=== PATIENT | male | born 1945 | race Caucasian/White ===

== ENCOUNTER 2018-06-26 17:44 | Emergency (ER) | payer OTHER ==
[~2018-06-26] VITALS: Ht 180.3 cm; Wt 88.5 kg
[2018-06-26 18:32] LABS: BASOPHILS ABSOLUTE AUTO 0.03 K/mm3 (0.00-0.23); BASOPHILS PERCENT AUTO 1 % (0-2); EOSINOPHILS PERCENT AUTO 2 % (0-6); Hematocrit 43.9 % (37.0-53.0); Hemoglobin 15.1 g/dL (13.5-17.5); IMMATURE GRAN ABSOLUTE AUTO 0.01 K/mm3 (0.00-0.10); IMMATURE GRAN PERCENT AUTO 0 % (0-1); LYMPHOCYTES ABSOLUTE AUTO 1.78 K/mm3 (0.84-5.20); LYMPHOCYTES PERCENT AUTO 30 % (21-46); MONOCYTES PERCENT AUTO 7 % (4-13); Mean Corpuscular HGB 34.6 pg (26.0-34.0); Mean Corpuscular HGB Conc 34.4 g/dL (31.5-36.5); Mean Corpuscular Volume 101 fL (80-100); Mean Platelet Volume 10.4 fL (9.1-12.4); NEUTROPHILS ABSOLUTE AUTO 3.58 K/mm3 (1.96-9.15); NEUTROPHILS PERCENT AUTO 61 % (41-73); Platelet Count 188 K/mm3 (150-400); RDW Coefficient Variation 11.8 % (11.7-14.2); RDW Standard Deviation 43.6 fL (35.1-46.3); Red Blood Cell Count 4.37 M/mm3 (4.30-5.90)
[2018-06-26] MEDS ORDERED: LISI20 PO (18:46)
[2018-06-26 18:56] LABS: Alanine Aminotransfer (ALT/SGP 31 U/L (12-78); Albumin, Blood 4.3 g/dL (3.4-5.0); Albumin/Globulin Ratio 1.3 (0.8-1.8); Alk Phos 107 U/L (50-136); Anion Gap 9 mmol/L (6-16); Aspartate Aminotrans (AST/SGOT 22 U/L (12-37); Bilirubin, Total 0.5 mg/dL (0.1-1.0); Blood Urea Nitrogen 9 mg/dL (8-24); Bun/Creatinine Ratio 8.9 (12.0-20.0); CO2, Blood 24 mmol/L (21-32); Calcium, Blood 8.8 mg/dL (8.5-10.1); Chloride, Blood 107 mmol/L (98-108); Creatinine, Blood 1.01 mg/dL (0.60-1.20); Globulin, Blood 3.2 g/dL (2.2-4.0); Glomerular Filtration Rate >60 (60-); Glucose, Blood 150 mg/dL (70-99); Potassium, Blood 3.8 mmol/L (3.5-5.5); Sodium, Blood 140 mmol/L (136-145); Total Protein, Blood 7.5 g/dL (6.4-8.2); Troponin I <0.015 ng/mL (0.000-0.040)
[2018-06-26] MEDS ORDERED: ELIQUIS5 MG PO (20:25)
[2018-06-26] MEDS ORDERED: Toprol Xl50 MG PO (20:25)
== END 2018-06-26 20:48 | disposition home or self-care (01) ==
LOC: ER 17:44
PROVIDERS: Emergency Medicine
DX: I48.0 Paroxysmal atrial fibrillation (principal); Z79.899 Other long term (current) drug therapy
CPT/HCPCS: 36415; 71046; 80053; 84484; 85025; 93005; 93010; 96361; 96374; 99285-25; J7030

== ENCOUNTER → 2019-04-01 | Outpatient (CLI) | payer OTHER ==
[~2019-04-01] MED LIST: ELIQUIS5 MG PO; LISI20 PO; Toprol Xl50 MG PO
== END | disposition home or self-care (01) ==
LOC: LAB SHORT 17:30 → LAB 17:30
DX: L08.9 Local infection of the skin and subcutaneous tissue, unspecified (principal)
CPT/HCPCS: 87070; 87077; 87147; 87186; 87205

== ENCOUNTER → 2020-01-30 | Outpatient (CLI) | payer OTHER | END | disposition home or self-care (01) | LOC: LAB 15:14 → LAB SHORT 15:14 | DX: N39.0 Urinary tract infection, site not specified (principal) | CPT/HCPCS: 87086 ==

== ENCOUNTER 2020-06-01 12:05 | Day surgery (SDC) | payer OTHER ==
[~2020-06-01] VITALS: Ht 180.3 cm; Wt 93.0 kg
[~2020-06-01 12:05] MED LIST changes: +AMLO5 PO; +ERGO50000 PO; +MAGNESIUM OXID500 MG PO; +METO25ER PO; +ZESTRIL40 M1 PO
--- NOTE | 2020-06-01 12:42 | NUR ---
06/01/20 1242 Zeny Hu 1ST IV ATTEMPT IN RW INFILTRATED, STARTED BY GEORGINA THORPE 2ND IV ATTEMPT IN RAC SUCCESSFUL, STARTED BY GEORGINA THORPE
== END 2020-06-01 13:53 | disposition home or self-care (01) ==
LOC: ORSCSDS 12:05
PROVIDERS: Internal Medicine Gastroenterology
PROC: 0DBH8ZX Excision of Cecum, Via Natural or Artificial Opening Endoscopic, Diagnostic (ICD-10-PCS; principal; 2020-06-01 13:15)
PROC: 0DBK8ZX Excision of Ascending Colon, Via Natural or Artificial Opening Endoscopic, Diagnostic (ICD-10-PCS; principal; 2020-06-01 13:15)
DX: Z12.11 Encounter for screening for malignant neoplasm of colon (principal); D12.0 Benign neoplasm of cecum; D12.2 Benign neoplasm of ascending colon; K57.30 Diverticulosis of large intestine without perforation or abscess without bleeding; K21.9 Gastro-esophageal reflux disease without esophagitis; E55.9 Vitamin D deficiency, unspecified; I48.91 Unspecified atrial fibrillation; I10 Essential (primary) hypertension; Z79.899 Other long term (current) drug therapy
CPT/HCPCS: 88305; J2704; J7120

== ENCOUNTER 2021-11-09 09:22 | Day surgery (SDC) | payer OTHER ==
[~2021-11-09] VITALS: Ht 180.3 cm; Wt 82.0 kg
[~2021-11-09 09:22] MED LIST changes: +AMLO10 PO; +ASPI81CH PO
--- NOTE | 2021-11-09 12:40 | NUR ---
1115 PATIENT RETURNED FROM THE [facility] VIA RECLINER. PLACED ON THE MONITOR. FULLY AWAKE. TR BAND TO THE RIGHT RADIAL WITH WHITE BOARD IN PLACE. 10 ML OF AIR IN THE BAND. NO PAIN NOTED. JONELLE GARRIDO FOLLOWED PATIENT FROM THE PROCEDURE TO THE RECOVERY.
--- NOTE | 2021-11-09 12:42 | NUR ---
1145 LUNCH SERVED AND PATIENT FED SELF. PATIENT UP TO THE RESTRROM AFTER LUNCH, GAIT STEADY. NO CHANGE IN TR BAND STATUS.
--- NOTE | 2021-11-09 12:43 | NUR ---
1230 REVIEWED DISCHARGE INSTRUCTIONS WITH THE JANENET AT THE BEDSIDE. 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
--- NOTE | 2021-11-09 13:06 | NUR ---
1255 BEGAN RELEASING AIR FROM THE TR BAND AND AFTER 4 ML REMOVED, BLEEDING MOTED. AIR REPLACED AND TR BAND READJUSTED AND BLEEDIN CONTROLED. SMALL HEMATOMA NOTED BUT QUICKLY HELD PRESSURE AND HEMATOMA CONTROLLED AND RESOLVED.
--- NOTE | 2021-11-09 13:36 | NUR ---
1330 ARTERIAL SITE IS NOT BLEEDING. TR BAND REMOVED. AND SITE ASSESSED. BUT HEMATOMA KEEPS RESURFACING DISTAL TO THE RADIAL SITE ABOUT 1/2 AN INCH. TR BAND REPOSITIONED DOWN THE WRIST. PATIENT UP OFF THE MONITOR AND ALLOWED TO DRESS AND UP THE RESTROOM. NO BLEEDING NOTED WITH ACTIVITY. NO HEMATOMA NOTED.
--- NOTE | 2021-11-09 14:31 | NUR ---
1430 PATIENT GATHERED ALL BELONINGS AND DISCHARGE INSTRUCTIONS. PIV REMOVED AND CATH TIP INTACT. PRESSURE DRESSING APPLIED TO LEFT AC SITE. TR BAND REMOVED AND PRESSURE DRESSIN APPLIED DIRESTED BY . WHITE BOARD APPLIED TO THE RIGHT WRIST. PATIENT DISCHARGED HOME VIA WHEELCHAIR WITH DRIVING. FOLLOW UP APPOINTMENT ON November. NO FURTHER QUESTIONS FROM THE PATIENT.
== END 2021-11-09 13:30 | disposition home or self-care (01) ==
LOC: MHTC 09:22
DX: I48.0 Paroxysmal atrial fibrillation (principal); R07.9 Chest pain, unspecified; I25.10 Atherosclerotic heart disease of native coronary artery without angina pectoris; I10 Essential (primary) hypertension
CPT/HCPCS: 93454; 99152; C1769; C1887; C1894; J1644; J2250; J3010; J7030; J7050; Q9967

== ENCOUNTER 2025-03-27 16:43 | Observation (INO) | payer OTHER ==
[~2025-03-27] VITALS: Ht 182.9 cm; Wt 89.0 kg
[2025-03-27] VITALS (8 sets, daily range): BP systolic 110–147; BP diastolic 77–101
[2025-03-27 17:55] LABS: BASOPHILS ABSOLUTE AUTO 0.03 K/mm3 (0.00-0.23); BASOPHILS PERCENT AUTO 0 % (0-2); EOSINOPHILS ABSOLUTE AUTO 0.02 K/mm3 (0.00-0.68); EOSINOPHILS PERCENT AUTO 0 % (0-6); Hematocrit 38.1 % (37.0-53.0); Hemoglobin 13.3 g/dL (13.5-17.5); IMMATURE GRAN ABSOLUTE AUTO 0.07 K/mm3 (0.00-0.10); IMMATURE GRAN PERCENT AUTO 1 % (0-1); LYMPHOCYTES ABSOLUTE AUTO 0.69 K/mm3 (0.84-5.20); LYMPHOCYTES PERCENT AUTO 5 % (21-46); MONOCYTES ABSOLUTE AUTO 0.68 K/mm3 (0.16-1.47); MONOCYTES PERCENT AUTO 5 % (4-13); Mean Corpuscular HGB Conc 34.9 g/dL (31.5-36.5); Mean Corpuscular Volume 98 fL (80-100); NEUTROPHILS ABSOLUTE AUTO 12.40 K/mm3 (1.96-9.15); NEUTROPHILS PERCENT AUTO 89 % (41-73); NRBC ABSOLUTE 0.00 K/mm3 (0.00-0.02); NRBC Auto 0.0 /100 WBC (0.0-0.2); Platelet Count 165 K/mm3 (150-400); RDW Coefficient Variation 12.4 % (11.7-14.2); RDW Standard Deviation 44.8 fL (35.1-46.3)
[2025-03-27 18:01] LABS: Anion Gap 10.0 mmol/L (3-11); Blood Urea Nitrogen 14.0 mg/dL (8-24); CO2, Blood 21.0 mmol/L (21-32); Calcium, Blood 8.3 mg/dL (8.5-10.1); Chloride, Blood 106.0 mmol/L (98-108); Creatinine, Blood 0.83 mg/dL (0.60-1.20); Glucose, Blood 161.0 mg/dL (70-99); Potassium, Blood 3.7 mmol/L (3.5-5.5); Sodium, Blood 133.0 mmol/L (136-145)
[2025-03-27 18:20] LABS: Prothrombin Time Results 11.9 Sec (9.7-11.5)
[2025-03-27 19:55] LABS: Source, Urine Clean Catch
[2025-03-27 19:58] LABS: Bilirubin, Urine Neg (Neg); Glucose Qualitative, Urine Neg (Neg); Ketones, Urine 4+ (Neg); Leukocyte Esterase, Urine Neg (Neg); Protein, Urine 2+ (Neg); Specific Gravity, Urine 1.020 (1.003-1.022); Urobilinogen, Urine NORM (Normal)
[2025-03-27 20:00] LABS: Color, Urine Yellow (P-Yellow)
[2025-03-27 20:05] LABS: Red Blood Cells, Urine 0-2 /hpf (0-2); White Blood Cells, Urine Not Seen /hpf (0-5)
[2025-03-27] MEDS ORDERED: Human Prothrombin Complx(Pcc) 2,000 UNIT in Water For Injection,Sterile 80 ML IV ONE (20:05)
[2025-03-27] MEDS ORDERED: Ondansetron HCl 2 MG / ML 2ML Vial IV PRN (20:05)
[2025-03-27] MEDS ORDERED: HydrALAZINE HCl 20 MG / ML 1ML Vial IV PRN (20:10)
[2025-03-27] MEDS ORDERED: Labetalol HCL 5 MG/ML 4ML Injection (Single Dose) IV PRN (20:10)
[2025-03-27] MEDS ORDERED: OxyCODONE 5 mg/Acetamin 325 mg TABLET PO PRN (20:10)
[2025-03-27] MEDS ORDERED: FentaNYL Citrate 50 MCG/ML 2 ML Injection IV PRN (20:10)
[2025-03-27 21:07] LABS: Hematocrit 34.8 % (37.0-53.0); Hemoglobin 12.1 g/dL (13.5-17.5)
[2025-03-27] MEDS ORDERED: VALSARTAN160 MG PO (21:26)
--- NOTE | 2025-03-27 22:00 | NUR ---
ADMISSION NOTE: PT ARRIVED FROM ED VIA GURNEY IN NO APPARENT DISTRESS. ALERT AND ORIENTED TO ALL. MAEW. LEFT LEG WRAPPED IN TIGHT SAVANNAH BANDAGE. CT SHOWED MASSIVE HEMATOMA WITH POSSIBLE CONTINUED BLEEDING FROM TERTIARY SOURCE. LAST HEMOGLOBIN 12.1. WILL TREND THESE VALUES Q 3 HRS. PULSES, TEMP, SENSATION IN LEFT LEG INTACT AND SYMMETRIC WITH RIGHT. LEG LEG IS SWOLLEN AND MEASUREMENTS TAKEN, 62CM AROUND AT MID THIGH AND 64CM AROUND AT UPPER THIGH. THESE MEASUREMENTS MARKED ON PT. PAIN SCORE 2-10 DESCRIBED A SURFACE PAIN/TIGHTNESS. PT HAS H/O A FIB WITH ABLATION SEVERAL YEARS AGO. IN SINUS RHYTHM IN THE LOW 70'S WITH STABLE BP. RA PRODUCING 97% SAT. PT USES CPAP AT HOME BUT RT SAYS THE MACHINE HE BROUGHT IS TOO DIRTY TO USE. PT SAYS HE WILL BE FINE WITHOUT IT FOR ONE NIGHT. IF NEEDED, WILL CALL RT AND HAVE A HOSPITAL CPAP BROUGHT IN. PT DENIES CHEST PAIN/PRESSURE, SOB, AB PAIN, N/V. ICE APPLIED TO LEG AND PT TILTED AWAY FROM LEFT SIDE FOR SLIGHT ELEVATION. WILL REVIEW AND CONTINUE PLAN OF CARE.
--- NOTE | 2025-03-27 22:17 | NUR ---
EVALUATED PATIENTS CPAP MACHINE. MACHINE WAS EXTREMELY DIRTY. TALKED WITH PATIENT ABOUT INPORTANCE OF KEEPING ALL PARTS CLEAN AND REPLACED. HE DECIDED HE COULD GO THE NIGHT WITHOUT HIS CPAP, IF HE DECIDES TO USE OURS LATER HE WILL LET THE NURSE KNOW. RN AWARE.
[2025-03-27 23:37] LABS: Hematocrit 33.5 % (37.0-53.0); Hemoglobin 11.8 g/dL (13.5-17.5)
[2025-03-28] VITALS (25 sets, daily range): BP systolic 101–188; BP diastolic 65–139
[2025-03-28 02:59] LABS: Hematocrit 32.0 % (37.0-53.0); Hemoglobin 11.1 g/dL (13.5-17.5)
[2025-03-28 07:16] LABS: Hematocrit 32.0 % (37.0-53.0); Hemoglobin 11.3 g/dL (13.5-17.5)
--- NOTE | 2025-03-28 07:30 | NUR ---
SHIFT SUMMARY PT LYING IN BED IN NO APPARENT DISTRESS. ALERT AND ORIENTED. VSS. AFEBRILE. BP SLIGHTLY ELEVATED. PAIN IS 1/10 AND MORE WITH MOVEMENT. LEFT LEG IS SWOLLEN BUT STABLE SINCE ADMISSION. PULSES, TEMP, SENSATION AND MOVEMENT IN BOTH FEET INTACT AND EQUAL. HR 60'S. SAT 97% ON RA. NO BM. 400 URINE OUTPUT DURING SHIFT. NO CHEST PAIN/PRESSURE, SOB, AB PAIN. SOME MILD NAUSEA ASSOCIATED WITH GERD TREATED WITH SUCCESS WITH TUMS. BEDSIDE SHIFT REPORT GIVEN TO ONCOMING DAY RN.
[2025-03-28 07:33] LABS: Anion Gap 11.0 mmol/L (3-11); Blood Urea Nitrogen 13.0 mg/dL (8-24); CO2, Blood 24.0 mmol/L (21-32); Calcium, Blood 8.2 mg/dL (8.5-10.1); Chloride, Blood 104.0 mmol/L (98-108); Creatinine, Blood 0.7 mg/dL (0.60-1.20); Glucose, Blood 137.0 mg/dL (70-99); Potassium, Blood 4.0 mmol/L (3.5-5.5); Sodium, Blood 135.0 mmol/L (136-145)
[2025-03-28 10:31] LABS: Hematocrit 32.9 % (37.0-53.0); Hemoglobin 11.5 g/dL (13.5-17.5)
--- NOTE | 2025-03-28 12:01 | NUR ---
ASSUMED CARE AT 0700 PT AWAKE AND WATCHING TV AT SHIFT CHANGE. HE IS A/O X4 AND ABLE TO MAKE HIS NEEDS KNOWN. LLE MODERATLY PAINFUL WITH MOVEMENT BUT PT MANAGING PAIN APPROPRIATLY; DISCOLORATION NOTED TO LLE WHERE HEMATOMA IS LOCATED; FIRM TO TOUCH BUT PT STATES "SOFTER THAN BEFORE". SPO2 >98% ON RA. AFEBRILE. AFIB NOTED WITH RATE 60'S. SBP 150'S. TOLERATING PO INTAKE WELL. USING URINAL INDEPENDENTLY. SEE SHIFT ASSESSMENT FOR FULL ASSESSMENT.
[2025-03-28 13:31] LABS: Hematocrit 31.8 % (37.0-53.0); Hemoglobin 11.1 g/dL (13.5-17.5)
--- NOTE | 2025-03-28 17:09 | NUR ---
DISCHARGED PT DISCHARGED TO HOME AT 1650 WITH . HE CONT TO BE A/O X4 AND DISCHARGE INSTURCTIONS PROVIDED BY THIS RN AND PROVIDER DR OLIVAREZ. PIV REMOVED AND SAVANNAH BANDAGE REWRAPPED WITH NEW BANDAGE. PT AMBULATING WELL WITH OUT ASSISTANCE. CPAP, GLASSES AND OTHER PERSONAL ITEMS SENT HOME WITH PT.
== END 2025-03-28 16:45 | disposition home or self-care (01) ==
LOC: ER 16:43 → ICUE 16:44 → EDBEDREQ 21:23 → ICUE 21:32
PROVIDERS: Emergency Medicine; Nurse Practitioner Acute Care; ADMIT Student in an Organized Health Care Education/Training Program
DX: S70.12XA Contusion of left thigh, initial encounter (principal); S06.0X1A Concussion with loss of consciousness of 30 minutes or less, initial encounter; I48.0 Paroxysmal atrial fibrillation; I10 Essential (primary) hypertension; V19.88XA Pedal cyclist (driver) (passenger) injured in other specified transport accidents, initial encounter; G47.33 Obstructive sleep apnea (adult) (pediatric); Z79.01 Long term (current) use of anticoagulants; Z79.899 Other long term (current) drug therapy
CPT/HCPCS: 36415; 70450; 71260; 72125; 74177; 80048; 81001; 83690; 85014; 85018; 85025; 85610; 85730; 94762; 96365; 97161; 97530; 99285-25; A9270; G0378; J7168; Q9967